=== PATIENT | male | born 1930 | race Asian ===

== ENCOUNTER 2017-07-10 19:06 | Inpatient (IN) | payer OTHER ==
[~2017-07-10] VITALS: Ht 170.2 cm; Wt 79.0 kg
[2017-07-10] MEDS ORDERED: LIPI10 PO (19:48)
[2017-07-10] MEDS ORDERED: GABAPENTIN100 M2 PO (19:48)
[2017-07-10] MEDS ORDERED: FENOFIBRATE48 M1 PO (19:48)
[2017-07-10] MEDS ORDERED: ASPIR 8181 MG PO (19:49)
[2017-07-10] MEDS ORDERED: METFORMIN HCL500 MG PO (19:49)
[2017-07-10] MEDS ORDERED: CELECOXIB200 MG PO (19:49)
[2017-07-10] MEDS ORDERED: LANTUS SOLOS100 U/M1 SQ (19:50)
[2017-07-10 20:30] LABS: AMPHETAMINE QUAL UR NONE DETECTED (NEG <=1000)
[2017-07-10 20:34] LABS: BASOPHIL % 0.5 % (0-2)
[2017-07-10 20:42] LABS: CALCIUM 9.2 mg/dL (8.5-10.1); CARBON DIOXIDE 31.5 mmol/L (21-32); CHLORIDE SERUM 103 mmol/L (98-107); GLUCOSE SERUM 147 mg/dL (74-106); POTASSIUM SERUM 4.7 mmol/L (3.5-5.1); SODIUM SERUM 141 mmol/L (136-145)
[2017-07-10 20:46] LABS: RED CELL DISTRIBUTION WIDTH 15.2 % (11.5-14.5)
[2017-07-10 20:47] LABS: ALBUMIN 3.9 g/dL (3.4-5.0); ALKALINE PHOSPHATASE 65 U/L (46-116); ALT/SGPT 38 U/L (16-63); AST/SGOT 26 U/L (15-37); BILIRUBIN TOTAL 0.4 mg/dL (0.20-1.00); LIPASE 132 IU/L (73-393); PLATELET COUNT 957 x10^3mcL (130-400); TOTAL PROTEIN, SERUM 8.1 g/dL (6.4-8.2)
[2017-07-10 22:24] VITALS: BP 181/64
[2017-07-10 23:24] VITALS: BP 181/64
[2017-07-10 23:36] LABS: CHOLESTEROL/HDL RATIO 3.4; MAGNESIUM 2.2 mg/dL (1.8-2.4); PHOSPHOROUS 3.9 mg/dL (2.5-4.9)
[2017-07-10 23:44] LABS: FREE T4 1.1 ng/dL (0.76-1.46); FREE THYROXINE INDEX 3.4 ug/dL (1.4-4.5); T4(THYROXINE) 9.7 ug/dL (4.7-13.3)
[2017-07-11 00:16] VITALS: BP 129/53
[2017-07-11 03:21] LABS: T3 TOTAL 0.96 ng/mL
[2017-07-11 04:09] LABS: BASOPHIL % 0.4 % (0-2)
[2017-07-11 04:12] LABS: RED CELL DISTRIBUTION WIDTH 15.5 % (11.5-14.5)
[2017-07-11 04:14] LABS: PLATELET COUNT 797 x10^3mcL (130-400)
[2017-07-11 04:19] LABS: CALCIUM 8.3 mg/dL (8.5-10.1); CHLORIDE SERUM 107 mmol/L (98-107); CREATININE SERUM 1.9 mg/dL (0.7-1.3); GLUCOSE SERUM 236 mg/dL (74-106); MAGNESIUM 1.9 mg/dL (1.8-2.4); POTASSIUM SERUM 3.9 mmol/L (3.5-5.1); SODIUM SERUM 141 mmol/L (136-145)
[2017-07-11 04:21] LABS: microscopic required? YES; urine erythrocyte TRACE (NEGATIVE)
[2017-07-11 06:10] VITALS: BP 145/58
[2017-07-11 09:41] VITALS: BP 116/62
[2017-07-11 17:25] VITALS: BP 158/63
[2017-07-11 21:20] VITALS: BP 148/67
[2017-07-12 06:18] VITALS: BP 169/75
[2017-07-12 08:30] VITALS: BP 160/69
[2017-07-12 09:36] LABS: BASOPHIL % 0.7 % (0-2)
[2017-07-12 09:40] LABS: RED CELL DISTRIBUTION WIDTH 15.3 % (11.5-14.5)
[2017-07-12 09:42] LABS: PLATELET COUNT 786 x10^3mcL (130-400)
[2017-07-12 10:31] LABS: CALCIUM 8.8 mg/dL (8.5-10.1); CARBON DIOXIDE 26.8 mmol/L (21-32); CHLORIDE SERUM 105 mmol/L (98-107); CREATININE SERUM 1.8 mg/dL (0.7-1.3); GLUCOSE SERUM 248 mg/dL (74-106); POTASSIUM SERUM 4.2 mmol/L (3.5-5.1); SODIUM SERUM 139 mmol/L (136-145)
[2017-07-12 12:38] VITALS: BP 136/43
[2017-07-12 17:26] VITALS: BP 150/59
[2017-07-12 21:34] VITALS: BP 145/51
[2017-07-13 07:02] VITALS: BP 164/68
[2017-07-13 07:52] LABS: CALCIUM 9.3 mg/dL (8.5-10.1); CHLORIDE SERUM 106 mmol/L (98-107); CREATININE SERUM 1.8 mg/dL (0.7-1.3); GLUCOSE SERUM 197 mg/dL (74-106); POTASSIUM SERUM 4.8 mmol/L (3.5-5.1); SODIUM SERUM 140 mmol/L (136-145)
[2017-07-13 09:10] LABS: BASOPHIL % 0.7 % (0-2)
[2017-07-13 09:16] LABS: RED CELL DISTRIBUTION WIDTH 15.5 % (11.5-14.5)
[2017-07-13 09:19] LABS: PLATELET COUNT 804 x10^3mcL (130-400)
[2017-07-13 10:19] VITALS: BP 175/93
[2017-07-13 12:15] VITALS: BP 173/85
[2017-07-13 12:40] VITALS: BP 118/64
[2017-07-13] MEDS ORDERED: METOPROLOL TART25 M1 PO (12:44)
[2017-07-13 14:28] VITALS: BP 179/67
== END 2017-07-13 16:14 | disposition home health service (06) | DRG 205 ==
LOC: ED 19:06 → DU 21:41
PROVIDERS: Emergency Medicine; Family Medicine Sports Medicine
DX: M94.0 Chondrocostal junction syndrome [Tietze] (principal); N17.0 Acute kidney failure with tubular necrosis; R65.10 Systemic inflammatory response syndrome (SIRS) of non-infectious origin without acute organ dysfunction; E11.65 Type 2 diabetes mellitus with hyperglycemia; E11.51 Type 2 diabetes mellitus with diabetic peripheral angiopathy without gangrene; E11.42 Type 2 diabetes mellitus with diabetic polyneuropathy; I16.0 Hypertensive urgency; I10 Essential (primary) hypertension; E11.621 Type 2 diabetes mellitus with foot ulcer; L97.519 Non-pressure chronic ulcer of other part of right foot with unspecified severity; E03.9 Hypothyroidism, unspecified; E66.9 Obesity, unspecified; Z68.27 Body mass index [BMI] 27.0-27.9, adult; Z95.1 Presence of aortocoronary bypass graft; Z89.422 Acquired absence of other left toe(s); Z79.4 Long term (current) use of insulin; Z79.82 Long term (current) use of aspirin
CPT/HCPCS: 82962; 83880; 84439; 90732; 97110-GP; J0696; J3490; J7030; Q0092